=== PATIENT | female | born 1995 | race Caucasian/White ===

== ENCOUNTER 2018-02-15 13:23 | Emergency (ER) | payer OTHER, SELFPAY ==
[2018-02-15 13:34] VITALS: BP 128/82; PULSE 79; RESP 14; TEMP 37; O2SAT 100
--- NOTE | 2018-02-15 15:41 | ED_ITS ---
HPI - Nausea/Vomiting/Diarrhea General Chief complaint: Nausea/Vomiting/Diarrhea Stated complaint: 6wks and cant keep anything down Time Seen by Provider: 02/15/18 15:34 Source: patient Mode of arrival: ambulatory Limitations: no limitations History of Present Illness HPI Narrative: Otherwise healthy 22-year-old female at approximately 6 weeks EGA by LMP here for evaluation of nausea and vomiting. She has not taken anything for this at home. No vaginal bleeding or loss of fluid. Does have some lower abdominal cramping. No urinary symptoms. No back pain. Related Data Previous Rx's Medication Instructions Recorded nitrofurantoin monohyd/m-cryst 100 mg PO Q12H #10 cap 02/15/18 [Macrobid] ondansetron [Zofran ODT] 4 mg PO BID-TID PRN #14 tab 02/15/18 Allergies Allergy/AdvReac Type Severity Reaction Status Date / Time No Known Drug Allergies Allergy Verified 02/15/18 15:52 Review of Systems Constitutional Denies fever(s) and Denies headache(s) ENT Ears, Nose, Mouth, and Throat: Denies headache(s) Gastrointestinal Gastrointestinal: Reports abdominal pain, Denies change in bowel habits, Denies constipation, Denies diarrhea, Reports nausea and Reports vomiting Genitourinary Denies dysuria, Denies urinary hesitancy, Denies urinary urgency and Denies vaginal discharge Musculoskeletal Denies myalgias and Denies arthralgias Neurologic Denies headache(s) [facility] Medical History Healthy adult (Acute) Surgical History No pertinent past surgical history (Acute) Exam Initial Vital Signs Initial Vital Signs: Vital Signs Temperature 98.6 F 02/15/18 13:34 Pulse Rate 79 02/15/18 13:34 Respiratory Rate 14 02/15/18 13:34 Blood Pressure 128/82 02/15/18 13:34 Pulse Oximetry 100 02/15/18 13:34 Const General: cooperative, healthy appearing, comfortable, well developed, well groomed and No acute distress Resp Effort & Inspection: normal respiratory effort Cardio Rate: regular rate GI Inspection: non-distended Skin Lesions: no lesions Rashes: no rashes Neuro General: alert, awake and oriented x3 Extrem General: normal to inspection Psych Appearance: grossly normal and well kempt Course Orders Ordered: ED Orders 02/15/18 16:20 Urine Culture Stat Urine Microscopic Stat Vital Signs - 8 hr 02/15/18 13:34 Temperature 98.6 F Pulse Rate 79 Respiratory Rate 14 Blood Pressure 128/82 Pulse Oximetry 100 MDM - Nausea/Vomiting/Diarrhea Lab Data Lab Results 02/15/18 Range/Units 16:20 Urine RBC 1-5/hpf (0-5/HPF) Urine WBC 1-5/hpf (0-5/HPF) Ur Squamous Epith Cells 1-5 /hpf Urine Bacteria Many (>30) H (None) Ur Culture Indicated? Specimen cultured Micro UA Comment Not Reportable Point of Care Testing Test Results Positive Urine Dip Bedside Urine Glucose Negative Bedside Urine Bilirubin - Negative Bedside Urine Ketone - Negative Urine Specific [place] 1.030 Bedside Urine Occult Blood + Bedside Urine pH 6.0 Bedside Urine Protein - Negative Bedside Urine Urobilinogen - Negative Bedside Urine Nitrite + Positive Bedside Urine Leukocytes - Negative Esterase MDM Narrative Medical decision making narrative: test is positive. Urine has positive nitrite and given the setting of the cramping and her status will treat with antibiotics. Patient not having any vaginal bleeding. Will hold on pelvic exam for now. Will send home with Zofran. Patient was tolerating small amounts of oral intake here in the emergency department. She was given return precautions. She expressed understanding and agreement plan. Discharge Plan Departure Patient Disposition: Home Clinical Impression: Urinary tract infection, Nausea and vomiting during Discharge Date/Time: 02/15/18 17:30 Interventions: ED Discharge Assessment Last Done: 02/15/18 17:29 Instructions: Nausea of (Alternative Therapy), Nausea and Vomiting- Adult Activity Restrictions/Additional Instructions: take the antibiotics as directed. Keep all of your scheduled medical appointments. Make sure your drinking small amounts of fluid over long periods of time. Return to the emergency department for any new or worsening symptoms. Prescriptions: New ondansetron [Zofran ODT] 4 mg tablet,disintegrating 4 mg PO BID-TID PRN (Reason: nausea and vomiting) Qty: 14 RF: 0 nitrofurantoin monohyd/m-cryst [Macrobid] 100 mg capsule 100 mg PO Q12H Qty: 10 RF: 0
[2018-02-15 16:48] LABS: Bacteria Urine Many (>30); Culture Indicated Urine Specimen Cultured; RBC Urine 1-5/HPF (0-5/HPF); Squamous Epithelial Cell Urine 1-5 /HPF; WBC Urine 1-5/HPF (0-5/HPF)
== END 2018-02-15 17:30 | disposition home or self-care (01) ==
PROVIDERS: Emergency Provider Emergency Medicine; PCP Family Medicine
DX: O23.41 Unspecified infection of urinary tract in pregnancy, first trimester (principal); O21.9 Vomiting of pregnancy, unspecified; Z3A.01 Less than 8 weeks gestation of pregnancy
CPT/HCPCS: 81003; 81015; 81025; 87077; 87086; 87186; 99283

== ENCOUNTER → 2018-02-22 09:10 | Outpatient (CLI) | payer OTHER, SELFPAY ==
[2018-02-22 10:08] LABS: Appearance Urine UA SL CLOUDY; Bilirubin Urine UA NEGATIVE (NEGATIVE); Color Urine UA YELLOW; Glucose Urine UA 1+ g/dL (Normal); Ketones Urine UA NEGATIVE (NEGATIVE); Leukocyte Esterase Urine UA NEGATIVE (NEGATIVE); Nitrite Urine UA NEGATIVE (Negative); Occult Blood Urine UA 2+ (Negative); Protein Urine UA NEGATIVE (Negative); Specific Gravity Urine UA 1.025 (1.000-1.035); Urobilinogen Urine UA 0.2 E.U./dL (0.2); pH Urine UA 5.5 (4.5-8.0)
[2018-02-22 10:20] LABS: Add Manual Diff / Slide Review NO; Basophils Percent Auto 0.3 % (0-2); Eosinophils Percent Auto 0.7 % (2-4); Hematocrit 39.2 % (36-46); Hemoglobin 13.7 g/dL (12.0-16.0); Mean Corpuscular HGB Conc 34.8 % (30-36); Mean Corpuscular Hemoglobin 30.5 PG (26-34); Mean Corpuscular Volume 87.8 fL (80-100); Monocytes Percent Auto 7.9 % (3-14); Neutrophils Absolute Auto 4700 /uL (3000-5900); Neutrophils Percent Auto 72.1 % (50-75); Platelet Count 225 X10^3/uL (150-400); Red Blood Cell Count 4.47 X10^6/uL (4.0-5.2); Red Cell Distribution Width 12.8 % (11.6-14.8); White Blood Cell Count 6.5 X10^3/uL (4.5-11.0)
[2018-02-22 10:21] LABS: Bacteria Urine Many (>30); RBC Urine 1-5/HPF (0-5/HPF); Squamous Epithelial Cell Urine 10-30 /HPF; WBC Urine 1-5/HPF (0-5/HPF)
[2018-02-22 11:22] LABS: Hepatitis B Surface Antigen NEGATIVE s/c (NEGATIVE)
[2018-02-22 11:38] LABS: Hep C Virus Ab w/Reflex Quant NEGATIVE s/c (NEGATIVE)
[2018-02-22 11:39] LABS: HIV 1 and 2 Antibody NEGATIVE (NEGATIVE)
[2018-02-24 13:23] LABS: RPR Screen Nonreactive (Nonreactive)
[2018-02-25 08:53] LABS: HSV 2 IGG AB < 0.90 index (< 0.90); HSV1IGG < 0.90 index (< 0.90)
== END ==
PROVIDERS: PCP Family Medicine; Visit Provider Family Medicine
DX: Z34.01 Encounter for supervision of normal first pregnancy, first trimester (principal); Z3A.01 Less than 8 weeks gestation of pregnancy
CPT/HCPCS: 80055; 81003; 81015; 86695; 86696; 86703; 86787; 86803; 86850; 86900; 86901; 87086

== ENCOUNTER → 2018-04-27 10:15 | Outpatient (CLI) | payer OTHER, SELFPAY ==
[2018-05-03 13:24] LABS: Cigarette Smoker N; Donated Egg NOT GIVEN; Donor Egg Age NOT GIVEN; Estriol, Free 1.27 ng/mL; Inhibin A, Dimeric 239 pg/mL; Maternal Ethnicity NOT GIVEN; Maternal Weight 193 lbs; Number of Fetuses NOT GIVEN; Previous Pregnancy Down Syndro NOT GIVEN; hCG, MoM 2.59; hCG, Serum 63.5 IU/mL
== END ==
PROVIDERS: PCP Family Medicine; Visit Provider Family Medicine
DX: Z34.00 Encounter for supervision of normal first pregnancy, unspecified trimester (principal)
CPT/HCPCS: 36415; 82105; 82677; 84702; 86336

== ENCOUNTER → 2018-05-18 10:16 | Outpatient (CLI) | payer OTHER, SELFPAY ==
--- NOTE | 2018-05-18 10:18 | DI.US.S_ITS ---
PROCEDURE: US OB >= 14 WEEKS FETUS INDICATIONS: 20 WEEKS GESTATION OUTSIDE/PRIOR DATING DATA: Last menstrual period (LMP): 12/29/17. LMP-based estimated date of delivery (TITA): 10/05/18. First dating scan (date and location): 03/01/18. Estimated date of delivery (TITA) from first dating scan: 10/07/18. TECHNIQUE: Real-time scanning was performed of the fetus, with image documentation and biometric measurements. Endovaginal scanning: Not performed COMPARISON: [facility], , OB <= 14 WEEKS FETUS, 03/01/2018, 8:57. FINDINGS: The General: A single living intrauterine gestation is present. Presentation: Breech. Placenta: Placental position is anterior, without previa. Amniotic fluid index: 13.6 cm, normal range is 5-24 cm. heart rate: 157 beats per minute. Maternal cervical canal: 3.0 cm long. Normal lower limit is 2.5 cm. biometrics: Biparietal diameter: 4.4 cm on 19 weeks 3 days Head circumference: 17.1 cm, 19 weeks 5 days Abdominal circumference: 14.9 cm, 20 weeks 2 days Femur length: 3.0 cm, 19 weeks 2 days Estimated gestational age from initial scan: not applicable. Composite gestational age from present scan: 19 weeks 5 days Estimated weight and percentile: 313 g, 33rd percentile Measurement variability for biometric dating: +/- 7 days from 14 weeks to 15 weeks 6 days gestation, +/- 10 days from 16 weeks to 21 weeks 6 days gestation, +/- 2 weeks from 22 weeks to 27 weeks 6 days gestation, +/- 3 weeks for 28 weeks gestation or later. weight reference: 4500 g or EFW >90/95% is considered macrosomia or large for gestational age. EFW <10% is small for gestational age. EFW 5% or less is considered intra-uterine growth restriction. Anatomic survey: Neuro: Ventricles are non-dilated at less than 10 mm. Cisterna magna is normal at 3-11 mm. Cerebellum is normal in size and morphology. Nuchal skin fold: Normal at less than 6 mm between 14-21 weeks gestational age. Face: Nose and lips, facial profile are normal. Spine: No evidence for spina bifida. Heart: 4-chambered heart is present, with normal ventricular outflow tracts. Diaphragm: Diaphragm is intact. Stomach: Left-sided stomach is present. Kidneys: No hydronephrosis. Normal is less than 5 mm in 2nd trimester, less than 7 mm in 3rd trimester. Cord: 3-vessel cord has orthotopic insertion. Bladder: Normal in size. Extremities: All 4 extremities identified. IMPRESSION: Single living intrauterine fetus in breech presentation demonstrated expected growth. Normal anatomic survey. Dictated by: Yimi Mauro M.D. on 05/18/2018 at 12:58 Approved by: Yimi Mauro M.D. on 05/18/2018 at 13:05
== END ==
PROVIDERS: PCP Family Medicine; Visit Provider Family Medicine
DX: Z36.89 Encounter for other specified antenatal screening (principal); Z3A.19 19 weeks gestation of pregnancy
CPT/HCPCS: 76811

== ENCOUNTER → 2018-06-23 13:01 | Outpatient (CLI) | payer OTHER, SELFPAY ==
[2018-06-23 15:35] LABS: Hematocrit 33.6 % (36-46); Hemoglobin 11.5 g/dL (12.0-16.0)
[2018-06-23 16:08] LABS: GTT (PREG) 1 Hour PP 50gm Dose 119 mg/dL (76-139)
== END ==
PROVIDERS: PCP Family Medicine; Visit Provider Family Medicine
DX: Z34.02 Encounter for supervision of normal first pregnancy, second trimester (principal); Z3A.24 24 weeks gestation of pregnancy
CPT/HCPCS: 36415; 82950; 85014; 85018

== ENCOUNTER 2018-07-10 20:45 | Observation (INO) | payer OTHER, SELFPAY ==
[2018-07-10 21:24] LABS: WBC Urine None Seen (0-5/HPF)
[2018-07-10 21:25] LABS: Appearance Urine UA CLEAR; Bilirubin Urine UA NEGATIVE (NEGATIVE); Color Urine UA YELLOW; Glucose Urine UA TRACE g/dL (Negative); Ketones Urine UA NEGATIVE (NEGATIVE); Leukocyte Esterase Urine UA NEGATIVE (NEGATIVE); Nitrite Urine UA NEGATIVE (Negative); Occult Blood Urine UA 1+ (Negative); Protein Urine UA NEGATIVE (Negative); Urobilinogen Urine UA 0.2 E.U./dL (0.2)
[2018-07-10 21:32] LABS: Bacteria Urine Moderate (10-30); RBC Urine 0-1/HPF (0-5/HPF); Squamous Epithelial Cell Urine 5-10 /HPF
[2018-07-10 21:33] LABS: Amorphous Sediment Urine 1+; Culture Indicated Urine Cult Not Indicated
[2018-07-10 22:05] VITALS: BP 159/82
[2018-07-10] MEDS: LACTATED RINGERS 1,000 ML 1000 ML IV (22:31)
[2018-07-10] MEDS: CEFAZOLIN 2 GM/100 ML FROZ.PIGGY IV (22:33)
[2018-07-10 23:47] VITALS: BP 120/73; PULSE 86; RESP 18; TEMP 36.3
== END 2018-07-10 23:55 | disposition home or self-care (01) ==
LOC: LABOR 20:47
PROVIDERS: Admitting Provider Obstetrics & Gynecology; PCP Family Medicine; Visit Provider Obstetrics & Gynecology
DX: O47.02 False labor before 37 completed weeks of gestation, second trimester (principal); Z3A.27 27 weeks gestation of pregnancy
CPT/HCPCS: 59025; 59050; 81001; 96360; G0378; G0379; J0690

== ENCOUNTER 2018-08-12 10:12 | Outpatient (CLI) | payer OTHER, SELFPAY ==
--- NOTE | 2018-08-12 11:03 | DI.US.S_ITS ---
PROCEDURE: US OB TRANSVAGINAL INDICATIONS: CONTRACTIONS; PAIN; CERVICAL LENGTH OUTSIDE/PRIOR DATING DATA: Last menstrual period (LMP): 12/30/79. LMP-based estimated date of delivery (TITA): 10/05/89. First dating scan (date and location): Not available. Estimated date of delivery (TITA) from first dating scan: 10/07/18. TECHNIQUE: Real-time scanning was performed of the fetus, with image documentation. Endovaginal scanning: Performed COMPARISON: None. FINDINGS: A single living intrauterine gestation is present. Presentation: Vertex. Placenta: Placental position is right/fundal, without previa. Amniotic fluid index: 17.6 cm, normal range is 5-24 cm. heart rate: 126 beats per minute. Maternal cervical canal: 3.0 cm long. Normal lower limit is 2.5 cm. Estimated gestational age from initial scan: 32 weeks zero days. Normal appearance of the maternal kidneys. IMPRESSION: Cervical length measures 3.0 cm. Single living intrauterine fetus. Dictated by: Yimi Mauro M.D. on 08/12/2018 at 11:57 Approved by: Yimi Mauro M.D. on 08/12/2018 at 12:05
--- NOTE | 2018-08-12 12:24 | PM.OBTRLD ---
Visit Information Visit Information Date of evaluation: 08/12/18 Primary OB Provider: Ciro Valladares On-call OB Provider: Mili Snyder Reason for Evaluation: Yes pre-term labor Comments/Additional reasons for admission: Patient came to the center due to possible rupture of membranes and contractions. [facility] Medical History Healthy adult (Acute) Surgical History No pertinent past surgical history (Acute) Social History Smoking Status: Never smoker Social History Smoking Status: Never smoker Exam Vital Signs (past 8 hours): Blood pressure 127/79 heart rate 104 Evaluation Evaluation Baseline heart rate: 145 Variability: Moderate (11-25) monitor accelerations: Present monitor decelerations: Absent Non-invasive Membranes Rupture Test: negative Diagnosis, Plan/Disposition Final Diagnosis (1) contractions: Current Visit: No Status: Acute (2) 32 weeks gestation of : Current Visit: No Status: Acute Plan/Disposition Plan: 22-year-old at 32 weeks and 2 days gestation. Patient was concerned about possible rupture membranes however am sure was negative. On the monitor patient had uterine irritability only. Ultrasound showed cervical length of 3 cm. Patient was reassured and encouraged to hydrate. She will follow up with Dr. Valladares next week as scheduled. Return precautions given to patient prior to discharge from Center. OB Disposition: home
== END 2018-08-12 12:35 | disposition home or self-care (01) ==
LOC: LABOR 12:31 → OB 08-16 06:53
PROVIDERS: Visit Provider Family Medicine
DX: O47.9 False labor, unspecified (principal); Z3A.32 32 weeks gestation of pregnancy
CPT/HCPCS: 59025; 59050; 76817; 84112; G0378; G0379

== ENCOUNTER → 2018-08-31 14:51 | Outpatient (CLI) | payer OTHER, SELFPAY ==
[2018-08-31 17:20] LABS: Alanine Aminotransferase 7 IU/L (9-52); Albumin 3.7 g/dL (3.5-5.0); Albumin Globulin Ratio 1.2 (1.0-2.8); Alkaline Phosphatase 165 U/L (38-126); Aspartate Aminotransferase 14 IU/L (14-36); Bilirubin Total 0.6 mg/dL (0.2-1.3); Bilirubin Unconjugated 0.4 mg/dL (0.0-1.1); Globulin 3.1 g/dL (1.7-4.1); HEMOLYSIS < 15 (0-50); Total Protein 6.8 g/dL (6.3-8.2)
[2018-09-02 13:58] LABS: Bile Acids, Total 4 umol/L (< 20)
[2018-09-02 15:05] LABS: Strep Grp B PCR NEG for Grp B Strep
== END ==
PROVIDERS: Visit Provider Family Medicine
DX: Z34.03 Encounter for supervision of normal first pregnancy, third trimester (principal); Z3A.35 35 weeks gestation of pregnancy; L29.9 Pruritus, unspecified
CPT/HCPCS: 36415; 80076; 82239; 87653

== ENCOUNTER → 2018-08-31 16:00 | Outpatient (CLI) | payer OTHER, SELFPAY | PROVIDERS: Visit Provider Family Medicine ==

== ENCOUNTER → 2018-09-16 11:53 | Outpatient (CLI) | payer OTHER, SELFPAY ==
--- NOTE | 2018-09-16 11:54 | DI.US.S_ITS ---
PROCEDURE: US OB LIMITED INDICATIONS: EFW OUTSIDE/PRIOR DATING DATA: Last menstrual period (LMP): 12/29/17. LMP-based estimated date of delivery (TITA): 10/05/18. First dating scan (date and location): 05/18/18. Estimated date of delivery (TITA) from first dating scan: 10/07/18. TECHNIQUE: Real-time scanning was performed of the fetus, with image documentation. Endovaginal scanning: None needed for this study COMPARISON: None. FINDINGS: A single living intrauterine gestation is present. Presentation: Vertex. Placenta: Placental position is left fundal, without previa. Amniotic fluid index: 8.0 cm, normal range is 5-24 cm. heart rate: 133 beats per minute. Estimated gestational age from initial scan: 37 weeks 0 days. BPD 9.5 cm, 38 weeks 4 days. Head circumference 33.0 cm, 37 weeks 4 days. Abdominal circumference 35.7 cm, 39 weeks 4 days. Femur length 7.6 cm, 38 weeks 4 days. Estimated current gestational age is 38 weeks 4 days with weight estimated at 3664 g, at the upper 95th percentile for current gestational age from the earliest OB ultrasound. IMPRESSION: The current estimated weight is at the upper 95th percentile, 3664 g, at the threshold for macrosomia. Normal amniotic fluid volume. Close attention to potential for further growth into definite macrosomia is recommended. The delivery date is projected to be centered on 10/07/18, in 3 additional weeks. Dictated by: Wenceslao Bell M.D. on 09/16/2018 at 13:14 Approved by: Wenceslao Bell M.D. on 09/16/2018 at 13:19
== END ==
PROVIDERS: PCP Family Medicine; Visit Provider Family Medicine
DX: Z34.03 Encounter for supervision of normal first pregnancy, third trimester (principal); Z3A.38 38 weeks gestation of pregnancy
CPT/HCPCS: 76815

== ENCOUNTER 2018-10-10 12:31 | Outpatient (CLI) | payer OTHER, SELFPAY | END 2018-10-10 13:09 | disposition home or self-care (01) | LOC: LABOR 12:40 → OB 10-11 14:35 | PROVIDERS: PCP Family Medicine; Visit Provider Family Medicine | DX: O48.0 Post-term pregnancy (principal); Z3A.40 40 weeks gestation of pregnancy | CPT/HCPCS: 59025; G0378; G0379 ==

== ENCOUNTER → 2018-10-10 13:11 | Outpatient (CLI) | payer OTHER, SELFPAY ==
--- NOTE | 2018-10-10 13:12 | DI.US.S_ITS ---
PROCEDURE: US OB LIMITED INDICATIONS: ESTIMATED WEIGHT OUTSIDE/PRIOR DATING DATA: Last menstrual period (LMP): 12/29/17. LMP-based estimated date of delivery (TITA): 10/05/18. First dating scan (date and location): Not available. Estimated date of delivery (TITA) from first dating scan: Not available. TECHNIQUE: Real-time scanning was performed of the fetus, with image documentation. Endovaginal scanning: Not needed for this study COMPARISON: [facility], OB LIMITED, 09/16/2018, 12:07. FINDINGS: A single living intrauterine gestation is present. Presentation: Vertex. Placenta: Placental position is fundal, without previa. Amniotic fluid index: 14.2 cm, normal range is 5-24 cm. heart rate: 139 beats per minute. Estimated gestational age from initial scan: 40 weeks 3 days biometry was performed at physician request to estimate currently, and the BPD, head circumference, abdominal circumference and femur length each yield Concordant estimated gestational age is with the average estimated composite gestational age from today's study is 39 weeks 6 days. The estimated weight from today's study is 4052 g, at the 78th percentile. . IMPRESSION: Appropriate interval growth, normal amniotic fluid volume. Vertex presentation. Current estimated weight is 4052 g, at the 78th percentile for current gestational age. Dictated by: Wenceslao Bell M.D. on 10/10/2018 at 16:50 Approved by: Wenceslao Bell M.D. on 10/10/2018 at 16:54
== END ==
PROVIDERS: PCP Family Medicine; Visit Provider Family Medicine
DX: O48.0 Post-term pregnancy (principal); Z3A.40 40 weeks gestation of pregnancy
CPT/HCPCS: 59025; 76815

== ENCOUNTER 2018-10-11 20:19 | Inpatient (IN) | payer OTHER, SELFPAY ==
[2018-10-11] MEDS: LACTATED RINGERS 1,000 ML 100 ML IV (22:30)
[2018-10-11 23:04] LABS: Add Manual Diff / Slide Review NO; Basophils Absolute Auto 100 /uL (0-100); Basophils Percent Auto 0.9 % (0-2); Eosinophils Absolute Auto 0 /uL (0-450); Eosinophils Percent Auto 0.3 % (2-4); Hematocrit 31.5 % (36-46); Hemoglobin 10.9 g/dL (12.0-16.0); Lymphocytes Absolute Auto 1700 /uL (1100-4500); Lymphocytes Percent Auto 20.6 % (25-40); Mean Corpuscular HGB Conc 34.7 % (30-36); Mean Corpuscular Hemoglobin 29.4 PG (26-34); Mean Corpuscular Volume 84.7 fL (80-100); Monocytes Absolute Auto 800 /uL (0-900); Monocytes Percent Auto 9.6 % (3-14); Neutrophils Absolute Auto 5800 /uL (1500-7000); Neutrophils Percent Auto 68.6 % (50-75); Platelet Count 176 X10^3/uL (150-400); Red Blood Cell Count 3.72 X10^6/uL (4.0-5.2); Red Cell Distribution Width 15.7 % (11.6-14.8); White Blood Cell Count 8.5 X10^3/uL (4.5-11.0)
[2018-10-11] MEDS: miSOPROStol 25 MCG TABLET VAG (23:24)
[2018-10-12] MEDS: OXYTOCIN PREMIX 30 UNIT/500 ML PLAST..BAG IV (08:03)
--- NOTE | 2018-10-12 09:10 | P.HP_ITS ---
History of Present Illness Date Patient Seen: 10/12/18 Time Patient Seen: 08:04 Chief complaint: observation of labor Narrative: 23-year-old female G1 para 0 estimated due date of 10/05/2018 consistent with early ultrasound. Estimated gestational age of 41 weeks. Patient was admitted to the hospital last evening for induction of labor because of postdates and concern about macrosomia. Patient established care at 8 weeks. She had a total weight gain of approximately 45 lb. She had routine follow-up. problems included obesity scoliosis and some intermittent contractions. During her she was on vitamins and Zofran. Her blood work shows blood type O-positive antibody screen negative hematocrit 39.2 and platelet count 225 VDRL is nonreactive urine cultures negative hepatitis-B surface antigen negative HIV negative rubella immu ne hep C negative 2nd trimester screening was negative diabetes screen was normal 20 week ultrasound showed normal anatomical screen. Near the end of the patient started to measure large. Ultrasound done revealed gestational weight of 3700 g at 38 weeks repeat ultrasound showed 4000 g baby at 40 weeks. Mom was not in favor of induction of labor or after discussion of risks and benefits and with her. She would like to proceed and try with natural childbirth. Reviewed that with her. Discussed about post states delivery as well an induction of labor which she was not excited about. But after discussion and repeat ultrasound. Induction of labor was started last evening with Cytotec. On arrival the center vital signs were stable heart tones were a little bit tachycardic but improved after fluid bolus. Mom received 1 dose of Cytotec over evening. This morning her cervical exam shows her to be 1 cm dilated 80% effaced -2 station derick intermittently heart tracing is category 1. Patient's past medical history includes migraine headaches mild asthma urinary tract infection. Family history of diabetes and heart disease Past surgical history patient denies surgical history. Gynecological history no history of abnormal Pap smears or gynecological infections or surgery. Patient History Family & Social History Tobacco & Substance use: Smoking Status Never smoker Meds Home Medications Medication Instructions Recorded Confirmed Type 1 tab PO DAILY 07/29/18 08/09/18 History vitamin,calcium,deuuagpj-suhx-zujtj acid tablet albuterol sulfate HFA 90 2 puff INHALATION Q6H PRN #8 gram 08/09/18 Rx mcg/actuation aerosol inhaler amoxicillin 875 mg tablet 875 mg PO BID #20 tab 08/09/18 Rx fluticasone propionate 110 2 puff INHALATION BID #12 gram 08/17/18 Rx mcg/actuation HFA aerosol inhaler breast pump #1 each 08/31/18 08/31/18 Rx Allergies Allergy/AdvReac Type Severity Reaction Status Date / Time No Known Drug Allergies Allergy Verified 08/09/18 13:22 Exam Narrative Exam Narrative: . General: Alert no apparent distress. Affect is appropriate. Derick it is uncomfortable. HEENT: Neck is supple without lymphadenopathy pupils equal round and reactive. Cardio: S1-S2 regular rate and rhythm. Respiratory: Lungs clear to auscultation. Abdomen: Gravid. Extremities: Normal deep tendon reflexes trace edema. Lannon: Derick intermittently heart tones: Category 1 heart tracing Objective Labs Result Diagrams: 10/11/18 22:30 Labs: Laboratory Results - last 24 hr 10/11/18 10/11/18 22:30 22:30 WBC 8.5 RBC 3.72 L Hgb 10.9 L Hct 31.5 L MCV 84.7 MCH 29.4 MCHC 34.7 RDW 15.7 H Plt Count 176 Neut % (Auto) 68.6 Lymph % (Auto) 20.6 L Kern % (Auto) 9.6 Eos % (Auto) 0.3 L Baso % (Auto) 0.9 Neut # (Auto) 5800 Lymph # (Auto) 1700 [place]ern # (Auto) 800 Eos # (Auto) 0 Baso # (Auto) 100 Blood Type O Positive Antibody Screen Negative Assessment & Plan Assessment & Plan narrative: G1 para 0 23-year-old female 41 weeks gestational age with a estimated weight of 4000 g. Reluctantly here for induction of labor. Patient received Cytotec last night with a Hernández score at 7-8 this morning Pitocin augmentation was started. PICC patient reviewed risks benefits of labor induction. Also a vaginal delivery with a large baby. Will proceed with expectant management. And amniotomy if baby this since into the canal and cervical change happens. Her GBS status is negative. She is afebrile and her vital signs are stable and baby is category 1. Labor admitting orders were written for.
[2018-10-12 09:30] VITALS: BP 123/71
[2018-10-12] MEDS: LACTATED RINGERS 1,000 ML 100 ML IV (11:26)
[2018-10-12 11:43] VITALS: TEMP 36.8
[2018-10-12] MEDS: fentaNYL 100 MCG/2 ML INJ 50 MCG IV ×2 (11:43→12:44)
[2018-10-12 12:44] VITALS: TEMP 36.8
[2018-10-12] MEDS: METHYLERGONOVINE 0.2 MG/ML VIAL IM (18:40)
[2018-10-12] MEDS: OXYTOCIN 10 UNIT/ML VIAL IM (18:40)
[2018-10-12] MEDS: CARBOPROST 250 MCG/ML AMPUL IM (18:46)
--- NOTE | 2018-10-12 19:13 | PM.OBPNLAB ---
Date/Time Date Patient Seen: 10/12/18 Time Patient Seen: 01:13 Pain Control Pain control: tolerating well Comments: Two doses of fentanyl getting an epidural Pelvic Exam Dilation (cm): 3 Effacement (%): 80 station: -1 Amniotic membrane status: Leaking Comments: Requesting epidural. Contractions adequate. Pain uncomfortable. Category 1 tracing. In the process of getting an epidural. Contractions Contractions on admission: regular Monitor mode: External Status status: Category l Assessment and Plan Assessment: active labor
--- NOTE | 2018-10-12 19:15 | PM.OBPNLAB ---
Pelvic Exam Dilation (cm): 3 Effacement (%): 80 station: -1 Amniotic membrane status: Leaking Contractions Monitor mode: External Status status: Category l
--- NOTE | 2018-10-12 19:15 | PM.OBPNLAB ---
Date/Time Date Patient Seen: 10/12/18 Pain Control Pain control: epidural Pelvic Exam Dilation (cm): 10 Effacement (%): 100 station: 0 Amniotic membrane status: Leaking Contractions Monitor mode: External Pitocin rate (mU/min): 3 Contraction frequency (min): 3 Contraction duration (min): 1 Contraction pattern: Regular Contraction intensity: Moderate Status status: Category l Assessment and Plan Assessment: active labor Plan: continuous present management
--- NOTE | 2018-10-12 19:22 | P.PCN_ITS ---
Procedures Date/Time Date of procedure: 10/12/18 Time of procedure: 19:17 General Procedure description: Vaginal delivery Indication 23-year-old G1 now para 141 weeks gestational age for labor induction macrosomia with estimated weight 4000 g Stage I approximately 8 hours. Patient received Cytotec the evening before. Patient received Pitocin starting at 7:30 a.m. in the morning. She was 1 cm 70- 80% effaced mid position of of cervix soft. She was started on Pitocin and she began to contract. Patient went from 1-3 cm and became more uncomfortable she requested fentanyl and she was given 2 doses. Patient progressed to 5 cm and then requested an epidural she received an epidural with adequate anesthesia and progressed to 6 cm. By 5:00 a.m. in the afternoon she was complete. During stage I she had category 1 tracing. Her vital signs were stable and she was afebrile throughout. Patient's GBS status was negative. Maximum Pitocin given was 6 milliunits Stage II of labor approximately 1-1/2 hours. Patient had good descent of baby through canal from -2 station to +2 station. heart tones were category 1. Mom pushed to deliver over intact apparent perineum a viable female infant. Baby was delivered in the vertex position occiput anterior. Baby was placed on the mother's abdomen cord was cut and transected after pulsating of the cord. Baby was vigorous and active cry. Attention was then taken to the vagina where it was shown the patient had a third-degree tear. She had Pitocin ran in and fundal massage. And IM Pitocin Stage III of labor approximately 20 minutes. Patient had delivery of intact placenta with three-vessel cord. She had inspection of her vagina and she had a third-degree tear. She also had inspection of her cervix was show no laceration. Patient had more bleeding than anticipated after given fluid bolus of Pitocin IM Pitocin she was given a dose of Methergine 0.2 IM and Hemabate 250 IM. Her bleeding gladly slow down. Estimated blood loss was approximately 600 cc. She had repair of her 3rd degree laceration in usual fashion. After repair of laceration rectal exam was done showed intact rectal mucosa. Afterwards baby and mom resting comfortably
[2018-10-12] MEDS: DERMOPLAST SPRAY 20% 60 ML 1 SPRAY TOP (19:42)
[2018-10-12] MEDS: OXYTOCIN PREMIX 30 UNIT/500 ML PLAST..BAG 100 UNIT IV (19:43)
[2018-10-13] MEDS: IBUPROFEN 600 MG TABLET PO ×3 (01:02→21:29)
--- NOTE | 2018-10-13 06:21 | PM.PN.1 ---
Subjective Date Patient Seen: 10/13/18 Time Patient Seen: 06:21 Interval history: day 1. Patient is doing well. She is up moving. She had a shower. Catheter has been removed. Pain is well controlled bleeding as as expected for post delivery uterus is firm. Vital signs are stable she is afebrile. She is breast-feeding well. Mild swelling of her lower extremities. Exam Narrative Exam Narrative: General: Alert no apparent distress. Affect is appropriate. Wendy it is uncomfortable. HEENT: Neck is supple without lymphadenopathy pupils equal round and reactive. Cardio: S1-S2 regular rate and rhythm. Respiratory: Lungs clear to auscultation. Abdomen: Uterus firm. Extremities: Normal deep tendon reflexes trace edema. Objective Labs Result Diagrams: 10/11/18 22:30 Assessment & Plan Assessment & Plan narrative: day 1. Status post vaginal delivery with 3rd degree tear and hemorrhage. Check hemoglobin hematocrit. Vaginal bleeding has been good. No further doses of Methergine given. She is up ambulating. Increase diet. Breast-feeding on demand. Continue with stool softeners vitamins and pain control anticipate discharge from the hospital put tomorrow.
[2018-10-13 08:58] LABS: Hematocrit 25.1 % (36-46); Hemoglobin 8.6 g/dL (12.0-16.0)
[2018-10-13] MEDS: DOCUSATE 250 MG CAPSULE PO (11:15)
[2018-10-13] MEDS: PRENATAL VIT,CALC/IRON/FOLIC 1 TABLET 1 TAB PO (11:16)
--- NOTE | 2018-10-14 08:21 | P.DS_ITS ---
Discharge Providers Date of admission: 10/11/18 20:19 Discharge Date: 10/14/18 Primary care physician: Ciro Valladares MD Consults: 10/12/18 19:34 Consult to Marker Delivery Routine Comment: Discharge provider: Mili Snyder DO Summary Date Patient Seen: 10/14/18 Time Patient Seen: 08:00 Procedures: Spontaneous vaginal delivery Epidural analgesia Hospital Course: Patient is a 23-year-old 2 days after vaginal delivery. She was brought in for post-dates induction and macrosomia. She received Cytotec and Pitocin with good progress of labor. She also received an epidural with adequate pain control. Delivery was complicated by a third-degree tear which was repaired. Patient also had a hemorrhage which resolved with Pitocin, Methergine and Hemabate. patient has done well. She is without difficulty. Eating, ambulating, voiding and passing flatus. Bleeding is light to moderate. Pain well controlled with ibuprofen only. She was eager to return home and all questions answered. Peripartum Data Infant Delivery Method: Natural Vaginal Laceration description: Vaginal - 3rd Degree 1: Gender: Female Disposition of : home Discharge Diagnosis (1) 41 weeks gestation of : Status: Acute (2) Spontaneous vaginal delivery: Status: Acute (3) hemorrhage: Status: Acute Status at Discharge Cognitive/behavioral status at discharge: at baseline, oriented Functional status at discharge: independent ambulation Overall status at discharge: patient is progressing back to baseline Time Spent with Patient Total time spent providing and/or coordinating discharge services: Less than 30 minutes Objective Labs Result Diagrams: 10/13/18 08:30 Labs: Laboratory Results - last 24 hr 10/13/18 08:30 Hgb 8.6 L Hct 25.1 L Exam Vital Signs (past 8 hours): Temperature 97.8? Blood pressure 120/76 Heart rate 92 Respirations 17 Narrative Exam Narrative: General: Awake and alert, no acute distress. HEENT: NCAT, EOMI, moist oral mucosa CV: Regular rate and rhythm, no murmurs, rubs or gallops Lungs: CTAB, no wheezes, rales, or rhonchi Abdomen: Soft, nontender; bowel tones active; uterus firm 1 cm below umbilicus Extremities: Warm, 1+ edema bilateral lower extremities, 2+ pedal pulses bilaterally Discharge Plan Discharge Plan Patient Disposition: Home Discharge comment: Advised patient to call for fevers, severe pain or bleeding through more than a pad an hour. Follow up with Dr. Valladares in 6 weeks. Discharge Med Rec/Prescriptions Prescriptions: New ibuprofen 600 mg Tablet 600 mg PO Q6HR PRN (Reason: Pain, Mild (1-3)) Qty: 30 RF: 0 docusate sodium 250 mg Capsule 250 mg PO BID Qty: 30 RF: 0 Continued prenat.vits,nanette,emi-atex-ipegv tablet 1 tab PO DAILY RF: 0 Flovent HFA 110 mcg/actuation HFA aerosol inhaler 2 puff INHALATION BID Qty: 12 RF: 0 albuterol sulfate 90 mcg/actuation HFA aerosol inhaler 2 puff INHALATION Q6H PRN (Reason: bronchospasm) Qty: 8 RF: 0 breast pump device .ROUTE .MEDSUPPLY Qty: 1 RF: 0 Discontinued amoxicillin 875 mg tablet 875 mg PO BID Qty: 20 RF: 0 Follow up/Referrals: Ciro Valladares MD [Primary Care Provider] - 6 Weeks Visit Report/Discharge Packet Visit Report Forms: Stroke Signs & Symptoms Discharge Data Primary Care Provider: Ciro Valladares Attending Provider: Ciro Valladares Admit Date/Time: 10/11/18 20:19
[2018-10-14] MEDS: DOCUSATE 250 MG CAPSULE PO (09:50)
[2018-10-14] MEDS: PRENATAL VIT,CALC/IRON/FOLIC 1 TABLET 1 TAB PO (09:50)
[2018-10-14 10:01] VITALS: BP 135/82; PULSE 89; RESP 16; TEMP 36.5
== END 2018-10-14 10:58 | disposition home or self-care (01) | DRG 768 ==
PROVIDERS: Admitting Provider Family Medicine; PCP Family Medicine; Visit Provider Family Medicine
DX: O48.0 Post-term pregnancy (principal); Z37.0 Single live birth; O70.20 Third degree perineal laceration during delivery, unspecified; O72.1 Other immediate postpartum hemorrhage; O36.63X0 Maternal care for excessive fetal growth, third trimester, not applicable or unspecified; Z3A.41 41 weeks gestation of pregnancy
CPT/HCPCS: 01967; 36415; 59050; 59200; 59400; 85014; 85018; 85025; 86850; 86900; 86901; G0379; J2210; J2590; J3010